=== PATIENT | female | born 1975 | race Caucasian/White ===

== ENCOUNTER 2024-08-31 12:20 | Outpatient (CLI) | payer OTHER | END 2024-08-31 12:21 | disposition home or self-care (01) | LOC: SCSRAD 12:20 | PROVIDERS: ATTEND Family Medicine | DX: R10.9 Unspecified abdominal pain (principal) | CPT/HCPCS: 74018 ==

== ENCOUNTER 2024-09-04 14:05 | Outpatient (CLI) | payer OTHER | END 2024-09-04 14:06 | disposition home or self-care (01) | LOC: BICRAD 14:05 | PROVIDERS: ATTEND Family Medicine | DX: R05.9 Cough, unspecified (principal) | CPT/HCPCS: 71046 ==

== ENCOUNTER 2025-06-12 07:49 | Outpatient (CLI) | payer OTHER | END 2025-06-12 07:50 | disposition home or self-care (01) | LOC: BICMAMMO 07:49 | PROVIDERS: ATTEND Family Medicine | DX: Z12.31 Encounter for screening mammogram for malignant neoplasm of breast (principal); Z80.3 Family history of malignant neoplasm of breast; Z98.82 Breast implant status | CPT/HCPCS: 77063; 77067 ==